=== PATIENT | female | born 1970 | race Hispanic/Latino ===

== ENCOUNTER 2017-03-21 11:33 | Emergency (ER) | payer OTHER, MEDICARE ==
[~2017-03-21] VITALS: Ht 157.5 cm; Wt 65.8 kg
[2017-03-21] MEDS ORDERED: ACETAMINOPHEN 325 MG TAB PO STA (11:57)
[2017-03-21 12:42] LABS: BILIRUBIN,URINE NEGATIVE (NEGATIVE); KETONES,URINE 3+ (NEGATIVE); LEUKOCYTE ESTERASE ,URINE NEGATIVE (NEGATIVE); NITRITE,URINE NEGATIVE (NEGATIVE); URINE UROBILINOGEN 0.2 mg/dL (0.2 - 1)
--- NOTE | 2017-03-21 12:44 | Diagnostic Imaging Report ---
PROCEDURE: Frontal and lateral views of the chest. COMPARISON: None. INDICATIONS: PNEUMONIA, CHEST PAIN FINDINGS: Lines/tubes: None. Lungs: Bilateral lower lung field opacification, left more than right. Pleura: There is no pleural effusion or pneumothorax. Heart and mediastinum: The heart and the mediastinum are normal. Bones: No acute bony abnormality. IMPRESSION: Bilateral lower lung field opacification, left more than right, representing pneumonia. Dictated by: Joni Monet M.D. on 03/21/2017 at 12:53 Electronically approved by: Joni Monet M.D. on 03/21/2017 at 12:53
[2017-03-21 12:45] LABS: CLARITY,URINE HAZY (CLEAR); COLOR,URINE YELLOW (YELLOW); PROTEIN,URINE DIPSTICK 1+ (NEGATIVE)
[2017-03-21 13:13] LABS: BACTERIA,URINE RARE /HPF; EPITHELIAL CELLS,URINE FEW /LPF; YEAST,URINE FEW
== END 2017-03-21 16:08 | disposition left against medical advice (07) ==
LOC: ER 11:33
DX: Z53.21 Procedure and treatment not carried out due to patient leaving prior to being seen by health care provider (principal)
CPT/HCPCS: 71020; 81001; 87086